=== PATIENT | female | born 1995 | race Caucasian/White ===

== ENCOUNTER 2018-08-06 19:59 | Emergency (ER) | payer OTHER | END 2018-08-06 21:32 | disposition home or self-care (01) | LOC: FTE 19:59 | DX: S70.362A Insect bite (nonvenomous), left thigh, initial encounter (principal); W57.XXXA Bitten or stung by nonvenomous insect and other nonvenomous arthropods, initial encounter; Y92.9 Unspecified place or not applicable | CPT/HCPCS: 99283; Z7502 ==

== ENCOUNTER 2018-08-09 00:43 | Emergency (ER) | payer OTHER ==
[2018-08-09] MEDS: LIDOCAINE 1% (MDV) 10 ML INJ INJ (02:28)
== END 2018-08-09 04:43 | disposition home or self-care (01) ==
LOC: FTE 00:43
DX: L02.416 Cutaneous abscess of left lower limb (principal)
CPT/HCPCS: 10060; 99283-25

== ENCOUNTER 2018-09-04 08:27 | Emergency (ER) | payer OTHER ==
[2018-09-04] MEDS ORDERED: LIDOCAINE 1% (MDV) 20 ML INJ SC (09:30)
[2018-09-04] MEDS: LIDOCAINE 1% (MPF) 5 ML VIAL INJ (09:30)
== END 2018-09-04 10:17 | disposition home or self-care (01) ==
LOC: FTE 08:27
DX: L02.214 Cutaneous abscess of groin (principal); R40.2412 Glasgow coma scale score 13-15, at arrival to emergency department
CPT/HCPCS: 56420; 99283-25

== ENCOUNTER 2018-09-29 11:15 | Emergency (ER) | payer OTHER | END 2018-09-29 12:50 | disposition home or self-care (01) | LOC: FTE 11:15 | DX: J03.90 Acute tonsillitis, unspecified (principal); L02.416 Cutaneous abscess of left lower limb | CPT/HCPCS: 81025; 99283 ==

== ENCOUNTER 2019-01-29 23:05 | Emergency (ER) | payer OTHER ==
[2019-01-30] MEDS: IBUPROFEN 600 MG TAB PO (02:14)
[2019-01-30] MEDS: LIDOCAINE 2% VISC 15 ML CUP PO (02:17)
== END 2019-01-30 02:37 | disposition home or self-care (01) ==
LOC: E/R 23:05
DX: J02.9 Acute pharyngitis, unspecified (principal); F17.210 Nicotine dependence, cigarettes, uncomplicated
CPT/HCPCS: 87070; 87880; 99283